=== PATIENT | male | born 1970 | race Two or more races ===

== ENCOUNTER 2017-07-26 18:40 | Emergency (ER) | payer OTHER ==
[~2017-07-26] VITALS: Ht 167.6 cm; Wt 80.0 kg
[~2017-07-26 18:40] MED LIST: HYDR-3237 PO
[2017-07-26 18:43] VITALS: BP 144/92
== END 2017-07-26 21:03 | disposition home or self-care (01) ==
LOC: ED 20:57
DX: S83.412A Sprain of medial collateral ligament of left knee, initial encounter (principal); S99.912A Unspecified injury of left ankle, initial encounter; I10 Essential (primary) hypertension; X50.1XXA Overexertion from prolonged static or awkward postures, initial encounter; Y93.89 Activity, other specified; Y92.89 Other specified places as the place of occurrence of the external cause; Y99.8 Other external cause status
CPT/HCPCS: 99284

== ENCOUNTER 2018-04-25 09:26 | Emergency (ER) | payer OTHER ==
[~2018-04-25] VITALS: Ht 167.6 cm; Wt 75.2 kg
[2018-04-25 09:50] VITALS: BP 142/88
[2018-04-25] MEDS ORDERED: HYDROcodone/APAP 5/325 TABLET PO ONE (10:30)
[2018-04-25] MEDS ORDERED: METHOCARBAMOL 750 MG TABLET PO ONE (10:30)
[2018-04-25] MEDS ORDERED: KETOROLAC 30 MG/1 ML IM ONE (10:30)
[2018-04-25] MEDS ORDERED: METHOCARBAMOL 750 MG TABLET ONE (10:41)
[2018-04-25] MEDS ORDERED: HYDROcodone/APAP 5/325 TABLET ONE (10:41)
[2018-04-25] MEDS ORDERED: KETOROLAC 30 MG/1 ML ONE (10:42)
--- NOTE | 2018-04-25 11:12 | NUR ---
yang wrap and knee immobilizer applied by EDT, pt given fitted crutches and crutch eduction. pt demonstrates appropriate use. pt medicated per emar, tolerated well. pt a&o, resps even and unlabored. nadn at this time. pt to be dc'd.
== END 2018-04-25 11:24 | disposition home or self-care (01) ==
LOC: ED 11:22
DX: M25.561 Pain in right knee (principal); I10 Essential (primary) hypertension; Z88.6 Allergy status to analgesic agent
CPT/HCPCS: 29505; 96372; 99283; J1885

== ENCOUNTER → 2018-04-25 | Outpatient (CLI) | payer OTHER | END | disposition home or self-care (01) | LOC: RAD 13:03 | PROVIDERS: ATTEND Physician Assistant Surgical | DX: S83.241A Other tear of medial meniscus, current injury, right knee, initial encounter (principal); M71.21 Synovial cyst of popliteal space [Baker], right knee; X58.XXXA Exposure to other specified factors, initial encounter; Y93.89 Activity, other specified; Y92.89 Other specified places as the place of occurrence of the external cause; Y99.8 Other external cause status ==

== ENCOUNTER 2020-02-02 13:58 | Emergency (ER) | payer OTHER ==
[~2020-02-02] VITALS: Ht 160 cm; Wt 78.8 kg
--- NOTE | 2020-02-02 14:43 | NUR ---
pt presents to ED with c/o headache, cough and intermittent sternal CP x 1 week, admits to covid exposure. pt is a&o, resps even and unlabored, able to speak in full sentences without difficulty. EKG taken in triage, all monitors in place. call light in reach. awaiting lab and cxr results at this time. droplet plus isolation precautions in place.
[2020-02-02 15:31] LABS: BASOPHILS % (AUTO) 1 % (0-1); EOSINOPHILS % (AUTO) 0 % (1-7); LYMPHOCYTES % (AUTO) 22 % (22-44); MEAN CORPUSCULAR HEMOGLOBIN 28.8 pg (27.5-34.5); MEAN CORPUSCULAR HGB CONC 33.8 g/dL (33.2-36.2); MEAN PLATELET VOLUME 8.2 fL (7.4-10.4); MONOCYTES % (AUTO) 6 % (2-9); NEUTROPHILS % (AUTO) 71 % (42-75); PLATELET COUNT 231 x10^3/uL (130-400); RED BLOOD COUNT 5.58 x10^6/uL (4.38-5.82); RED CELL DISTRIBUTION WIDTH 14.2 % (9.4-14.8)
[2020-02-02 15:34] VITALS: BP 137/96
[2020-02-02 15:38] LABS: MD NO
[2020-02-02 15:40] LABS: ALANINE AMINOTRANSFERASE 49 U/L (12-78); ANION GAP 4 mmol/L (5-15); CALCIUM 8.7 mg/dL (8.5-10.1); CHLORIDE 113 mmol/L (98-107)
[2020-02-02 15:45] LABS: ALKALINE PHOSPHATASE 111 U/L (45-117); BILIRUBIN,TOTAL 0.5 mg/dL (0.2-1.0); CREATININE 0.78 mg/dL (0.7-1.3); TOTAL PROTEIN 7.5 g/dL (6.4-8.2); TROPONIN I < 0.015 ng/mL (0.000-0.045)
--- NOTE | 2020-02-02 16:30 | NUR ---
REPORT GIVEN TO GLENIS DONOHUE WHO IS ASSUMING CARE.
== END 2020-02-02 17:14 | disposition home or self-care (01) ==
LOC: ED 15:00
DX: U07.1 COVID-19 (principal); R07.89 Other chest pain; B34.9 Viral infection, unspecified; R06.02 Shortness of breath; I10 Essential (primary) hypertension
CPT/HCPCS: 36415; 71045; 80053; 84484; 85025; 87635; 93005; 99285

== ENCOUNTER → 2020-06-05 | Outpatient (CLI) | payer OTHER ==
[~2020-06-05] MED LIST changes: +ESOM20CA PO; +HYDROCHLOROTH12.5 MG PO; +LOSA50TA14 PO; +MULT-658 PO
[2020-06-05 16:30] LABS: ALBUMIN 4.2 g/dL (3.4-5.0); ANION GAP 5 mmol/L (5-15); CALCIUM 9.1 mg/dL (8.5-10.1); CHLORIDE 109 mmol/L (98-107)
[2020-06-05 16:35] LABS: ALANINE AMINOTRANSFERASE 43 U/L (12-78); ALKALINE PHOSPHATASE 128 U/L (45-117); BILIRUBIN,TOTAL 0.3 mg/dL (0.2-1.0); TOTAL PROTEIN 7.5 g/dL (6.4-8.2)
== END | disposition home or self-care (01) ==
LOC: STAR 15:19
PROVIDERS: ATTEND Internal Medicine Geriatric Medicine
DX: Z01.812 Encounter for preprocedural laboratory examination (principal); K31.89 Other diseases of stomach and duodenum; Z20.822 Contact with and (suspected) exposure to COVID-19
CPT/HCPCS: 36415; 80053; U0003

== ENCOUNTER 2020-06-09 05:38 | Day surgery (SDC) | payer OTHER ==
[~2020-06-09] VITALS: Ht 165.1 cm; Wt 76.0 kg
[2020-06-09 06:16] VITALS: BP 158/97
[2020-06-09] MEDS ORDERED: CHLORHEXIDINE 15 ML UDC ONE (06:20)
[2020-06-09] MEDS ORDERED: CHLORHEXIDINE 15 ML UDC PO ONE (06:30)
[2020-06-09] MEDS ORDERED: LACTATED RINGERS 1,000 ML IV SCH (06:30)
[2020-06-09] MEDS ORDERED: PROPOFOL 50 ML ONE ×2 (07:28→07:42)
[2020-06-09] MEDS ORDERED: DEXAMETHASONE 4 MG/ML, 5ML ONE (07:45)
[2020-06-09] MEDS ORDERED: EPHEDRINE 50 MG/ML, 1ML IVPush PRN (08:30)
[2020-06-09] MEDS ORDERED: FENTANYL PF 100 MCG/2ML IV PRN (08:30)
[2020-06-09] MEDS ORDERED: hydrALAzine 20 MG/ML, 1ML IV PRN (08:30)
[2020-06-09] MEDS ORDERED: ACETAMINOPHEN 325 MG TABLET PO PRN (08:30)
[2020-06-09] MEDS ORDERED: HYDROmorphone 1 MG/ML, 1ML INJ IVPush PRN (08:30)
[2020-06-09] MEDS ORDERED: MIDAZOLAM 1 MG/ML, 2ML IV PRN (08:30)
[2020-06-09] MEDS ORDERED: PROMETHAZINE 12.5 MG SUPP PR PRN (08:30)
[2020-06-09] MEDS ORDERED: OXYcodone 5 MG/5 ML ORAL.SOL UDC PO PRN (08:30)
[2020-06-09] MEDS ORDERED: MEPERIDINE/PF 25MG/0.5ML IVPush PRN (08:30)
[2020-06-09] MEDS ORDERED: PROMETHAZINE 25 MG/ML, 1ML IVPush PRN (08:30)
[2020-06-09] MEDS ORDERED: LABETALOL 5MG/ML, 20ML IV PRN (08:30)
[2020-06-09] MEDS ORDERED: ONDANSETRON 2MG/ML, 2ML IVPush PRN (08:30)
[2020-06-09] MEDS ORDERED: DIAZEPAM 5 MG/ML, 2ML IVPush PRN (08:30)
[2020-06-09] MEDS ORDERED: ALBUTEROL SULFATE 2.5 MG/3 ML NPPB PRN (08:30)
[2020-06-09] MEDS ORDERED: DIPHENHYDRAMINE 50 MG/ML, 1ML IVPush PRN ×2 (08:30)
== END 2020-06-09 09:30 | disposition home or self-care (01) ==
LOC: OUT 05:38
PROVIDERS: ATTEND Internal Medicine Geriatric Medicine
DX: K31.7 Polyp of stomach and duodenum (principal); K31.89 Other diseases of stomach and duodenum; K21.9 Gastro-esophageal reflux disease without esophagitis; I10 Essential (primary) hypertension; Z88.8 Allergy status to other drugs, medicaments and biological substances; Z79.899 Other long term (current) drug therapy; Z90.49 Acquired absence of other specified parts of digestive tract; Z98.890 Other specified postprocedural states; Z72.89 Other problems related to lifestyle
CPT/HCPCS: 43236; 43251; 43259; 88305; J1100; J2704; J7120